=== PATIENT | female | born 1945 | race Caucasian/White ===

== ENCOUNTER 2019-03-02 11:04 | Emergency (ER) | payer MEDICARE ==
[2019-03-02 11:46] VITALS: BP 124/86
--- NOTE | 2019-03-02 13:09 | UC ---
Elbow Pain - HPI Summary HPI Summary: Pt presents with c/o gradual onset of left elbow swelling. Denies injury, redness, or fever. - History of Current Complaint Chief Complaint: UCUpperExtremity Stated Complaint: LEFT ELBOW Time Seen by Provider: 03/02/19 12:19 Hx Obtained From: Patient ?: No Onset/Duration: Days, Atraumatic, Still Present Severity Initially: Mild Severity Currently: Mild Pain Intensity: 0 Location Of Pain: Is Discrete @ - left elbow Aggravating Factor(s): Other - hitting left elbow on hard surface Alleviating Factor(s): Rest Associated Signs And Symptoms: Positive: Swelling - Allergies/Home Medications Allergies/Adverse Reactions: Allergies Allergy/AdvReac Type Severity Reaction Status Date / Time clavulanic acid AdvReac GI Upset Verified 03/02/19 11:40 Home Medications: Home Medications Aspirin EC TAB* [Ecotrin EC Low Dose 81 MG*] 81 mg PO DAILY 03/02/19 [History Confirmed 03/02/19] Cholecalciferol CAP/TAB(NF) [Vitamin D3 CAP/TAB (NF)] unit PO WEEKLY 03/02/19 [ History] Cyanocobalamin INJ * [Vitamin B12 INJ *] 1,000 mcg IM MONTHLY 03/02/19 [History Confirmed 03/02/19] Epoetin Aniceto [Procrit] 2,000 unit IJ SEE INSTRUCTIONS PRN 03/02/19 [History Confirmed 03/02/19] Famotidine TAB* [Pepcid 20 MG TAB*] 20 mg PO BID 03/02/19 [History Confirmed ] Insulin ASPART (NF) [Novolog (NF)] 0 - 12 unit SUBCUT TID AC 03/02/19 [History Confirmed 03/02/19] Insulin Detemir (NF) [Levemir (NF)] 32 unit SUBCUT BID 03/02/19 [History Confirmed 03/02/19] Irbesartan 37.5 mg PO BID 03/02/19 [History Confirmed 03/02/19] Metoprolol Tartrate TAB* [Lopressor TAB*] 50 mg PO DAILY 03/02/19 [History Confirmed 03/02/19] Pravastatin (NF) [Pravachol (NF)] 40 mg PO DAILY 03/02/19 [History Confirmed ] PMH/Surg Hx/FS Hx/Imm Hx Previously Healthy: Yes Cardiovascular History: Cardiac Disease, Hypertension - Surgical History Surgical History: Yes Surgery Procedure, Year, and Place: Appendectomy, ~1960s, [place] - Family History Known Family History: Positive: Hypertension - Social History Occupation: Retired Lives: With Family Alcohol Use: None Substance Use Type: None Smoking Status (MU): Never Smoked Tobacco Have You Smoked in the Last Year: No Review of Systems All Other Systems Reviewed And Are Negative: Yes Constitutional: Positive: Negative Skin: Positive: Negative Eyes: Positive: Negative ENT: Positive: Negative Respiratory: Positive: Negative Cardiovascular: Positive: Negative Gastrointestinal: Positive: Negative Genitourinary: Positive: Negative Motor: Positive: Negative Neurovascular: Positive: Negative Musculoskeletal: Positive: Edema - left posterior elbow Neurological: Positive: Negative Psychological: Positive: Negative Is Patient Immunocompromised?: No Physical Exam Triage Information Reviewed: Yes Appearance: Well-Appearing Vital Signs: Initial Vital Signs Temp 97.5 F 03/02/19 11:37 Pulse 74 03/02/19 11:37 Resp 18 03/02/19 11:37 BP 124/86 03/02/19 11:37 Pulse Ox 100 03/02/19 11:37 Vital Signs Reviewed: Yes Eye Exam: Normal ENT Exam: Normal ENT: Positive: Hearing grossly normal Dental Exam: Normal Neck exam: Normal Respiratory: Positive: No respiratory distress Musculoskeletal: Positive: Edema @ - left elbow, posterior, soft, non tender, non erythematous Neurological Exam: Normal Psychological Exam: Normal Skin Exam: Normal Elbow Pain Course/Dx - Differential Dx/Diagnosis Differential Diagnosis/HQI/PQRI: Bursitis Provider Diagnosis: Bursitis of left elbow Discharge - Sign-Out/Discharge Documenting (check all that apply): Patient Departure All imaging exams completed and their final reports reviewed: No Studies - Discharge Plan Condition: Stable Disposition: HOME Prescriptions: Cephalexin CAP* [Keflex 500 CAP*] 500 mg PO Q12H #20 cap Patient Education Materials: Elbow Bursitis (ED), Ice Pack Application (ED) Referrals: [facility] [Outside] - If Needed No Primary Care Phys,NOPCP [Primary Care Provider] - - Billing Disposition and Condition Condition: STABLE Disposition: Home - Attestation Statements Provider Attestation: I was available for consult. This patient was seen by the STERLING. The patient was not presented to, seen by, or examined by me. -Derick
== END 2019-03-02 13:30 | disposition home or self-care (01) ==
LOC: UCCORT 11:04
DX: M71.9 Bursopathy, unspecified (principal); I10 Essential (primary) hypertension; Z79.899 Other long term (current) drug therapy; Z79.82 Long term (current) use of aspirin; Z88.0 Allergy status to penicillin
CPT/HCPCS: 99212; G0463